=== PATIENT | male | born 1955 | race Asian ===

== ENCOUNTER 2017-07-30 10:44 | Emergency (ER) | payer BC, MEDICARE, OTHER ==
[~2017-07-30] VITALS: Ht 170.2 cm; Wt 83.9 kg
[~2017-07-30 10:44] MED LIST: LEVO500T20 PO; METR500T PO; OMEP20CA10 PO
[2017-07-30 10:59] VITALS: BP_SYST 161
[2017-07-30] MEDS ORDERED: KETOROLAC TROMETHAMINE 60 MG/2 ML VIAL IM ONE (12:00)
[2017-07-30 13:40] VITALS: BP_SYST 161
== END 2017-07-30 13:40 | disposition home or self-care (01) ==
LOC: SED 10:44
DX: M25.571 Pain in right ankle and joints of right foot (principal); R03.0 Elevated blood-pressure reading, without diagnosis of hypertension; K21.9 Gastro-esophageal reflux disease without esophagitis; Z88.6 Allergy status to analgesic agent
CPT/HCPCS: 73610; 96372; 99284; J1885